=== PATIENT | male | born 1985 | race Caucasian/White ===

== ENCOUNTER 2018-02-23 13:15 | Emergency (ER) | payer OTHER ==
[~2018-02-23] VITALS: Ht 185.4 cm; Wt 97.5 kg
--- NOTE | 2018-02-23 13:51 | ED GI/GU/ABDOMINAL COMPLAINT ---
History of Present Illness General Chief Complaint: General Adult Stated Complaint: "I THINK MY SUGAR IS LOW" Source: patient, family Exam Limitations: no limitations Vital Signs & Intake/Output Vital Signs & Intake/Output Vital Signs Date Time Temp Pulse Resp B/P B/P Pulse O2 O2 Flow FiO2 Mean Ox Delivery Rate 02/23 1844 99.9 88 15 98 Room Air Room Air 02/23 1519 99.4 76 15 114/69 100 Room Air Room Air 02/23 1406 Room Air Room Air 02/23 1326 100.0 136 18 123/80 97 Room Air ED Intake and Output 02/24 0000 02/23 1200 Intake Total 2000 Output Total Balance 2000 Intake, IV 2000 Intake, Oral 0 Patient 97.522 kg Weight Weight Reported by Patient Measurement Method Allergies Coded Allergies: NO KNOWN ALLERGIES (02/23/18) Triage Note: 32 Y/O MALE C/O "FEELING SO SICK", SYMPTOMS ONSET THIS AM. STATES HX DIABETES (FINGERSTICK 281), WOKE TODAY NOT FEELING WELL; FIANCE RECENTLY WITH N/V/D SATURDAY. PT C/O DIFFUSE ABDOMINAL PAIN AND N/V/D. PT STATING "I FEEL LIKE IM GOING TO PASS OUT". TAKEN TO ROOM 1, EKG ORDERED Triage Nurses Notes Reviewed? yes HPI: 32M PMH Type 1 DM presents with 2 days of worsening nausea, intractable vomiting , profuse diarrhea 5+ episodes and watery but without blood, abdominal cramping, malaise, diaphoresis. His SO had diarrhea 2 days ago and works with small children, but she is better now. He is unable to toleate food or water and feels very ill. He is unsure of when he last took insulin, but it was not today. No recent travel. Past History Travel History Traveled to [place] past 21 day No Medical History Any Pertinent Medical History? see below for history Neurological: NONE EENT: NONE Cardiovascular: NONE Respiratory: NONE Gastrointestinal: NONE Hepatic: NONE Renal: NONE Musculoskeletal: NONE Psychiatric: NONE Endocrine: diabetes Blood Disorders: NONE Cancer(s): NONE MASON HELPER/Reproductive: NONE Surgical History Surgical History: non-contributory Psychosocial History What is your primary language [place]at[place] Tobacco Use: Current Daily Use Daily Tobacco Use Amount/Type: => 5 Cigarettes daily Family History Hx Contributory? No Review of Systems Review of Systems Constitutional: Reports: no symptoms. EENTM: Reports: no symptoms. Respiratory: Reports: no symptoms. Cardiovascular: Reports: no symptoms. GI: Reports: no symptoms. Genitourinary: Reports: no symptoms. Musculoskeletal: Reports: no symptoms. Skin: Reports: no symptoms. Neurological/Psychological: Reports: no symptoms. Hematologic/Endocrine: Reports: no symptoms. Immunologic/Allergic: Reports: no symptoms. All Other Systems: Reviewed and Negative Physical Exam Physical Exam General Appearance: well developed/nourished, mild distress, diaphoretic, appears ill Head: atraumatic, normal appearance Eyes: Bilateral: normal appearance, PERRL, EOMI. Ears, Nose, Throat, Mouth: hearing grossly normal, dry mm Neck: normal inspection, supple, full range of motion Respiratory: normal breath sounds, no respiratory distress Cardiovascular: regular rate/rhythm Gastrointestinal: soft, non-tender Back: normal inspection, normal range of motion Extremities: normal range of motion Neurologic/Psych: awake, alert, oriented x 3, normal mood/affect Skin: intact, normal color, warm/dry Core Measures ACS in differential dx? No Sepsis Present: No Sepsis Focused Exam Completed? No Progress Differential Diagnosis: AAA, AMI, appendicitis, biliary colic, bowel obstruction , colon cancer, cholecystitis, diverticulitis, epididymitis, esophageal varices, gastritis, hepatitis, hernia, hemorrhoids, ischemic bowel, inflamm bowel dis, Shaunna-Andrew tear, orchitis, pancreatitis, prostatitis, peptic ulcer, PUD/GERD, perforated viscous, pyelonephritis, SBO, STD, testicular torsion, ureterolithiasis, urinary retention, urethritis, UTI/pyelo Plan of Care: Orders Procedure Date/time Status Consistent Carbohydrate 2 02/24 B Active RAPID VIRAL INFLUENZA A 02/23 1558 Complete BLOOD CULTURE 02/23 1352 Active URINALYSIS 02/23 1350 Complete LIPASE 02/23 1350 Complete COMPREHENSIVE METABOLIC PANEL 02/23 1350 Complete CBC WITHOUT DIFFERENTIAL 02/23 1350 Complete EKG 02/23 1325 Active Laboratory Tests 02/23/18 1554: Urine Color YEL, Urine Clarity CLEAR, Urine pH 6.0, Ur Specific [place] 1.020, Urine Protein NEG, Urine Ketones 15 H, Urine Nitrite NEG, Urine Bilirubin NEG, Urine Urobilinogen 1.0, Ur Leukocyte Esterase NEG, Ur Microscopic EXAM NOT REQUIRED, Urine Hemoglobin NEG, Urine Glucose >=1000 H 02/23/18 1437: Anion Gap 13, Estimated GFR > 60, BUN/Creatinine Ratio 14.3, Glucose 327 H, Calcium 9.4, Total Bilirubin 0.9, AST 36, ALT 62, Alkaline Phosphatase 134 H, Total Protein 7.0, Albumin 4.5, Globulin 2.5, Albumin/Globulin Ratio 1.8, Lipase < 10 L, CBC w Diff NO MAN DIFF REQ, RBC 4.98, MCV 93.5, MCH 31.0, MCHC 33.2, RDW 13.2, MPV 10.3, Gran % 89.8 H, Lymphocytes % 5.1 L, Monocytes % 4.7, Eosinophils % 0.4, Basophils % 0, Absolute Granulocytes 11.0 H, Absolute Lymphocytes 0.6 L, Absolute Monocytes 0.6, Absolute Eosinophils 0, Absolute Basophils 0 Microbiology 02/24 1600 NASOPHARYN: Influenza Virus A & B Rapid Smear - COMP 02/23 1437 BLOOD: Blood Culture - RES 02/23 1437 BLOOD: Blood Culture - CAN Cancelled: Quantity not sufficient for both blood culture bottles. Patient improved dramatically after IV hydration, food, anti-nausea meds, and insulin. His workup is normal. He can be discharged home with outpatient follow up. Fingerstick on discharge is 371, however patient feels much better and says he will manage his own levels at home, and is confident he can handle it. We will discharge per patient wishes. Diagnostic Imaging: Viewed by Me: CT Scan. Discussed w/RAD: CT Scan. Radiology Impression: PATIENT: GAL ALEJANDRO PRESENT AGE: 32 PATIENT ACCOUNT NO: [id number] : 86 LOCATION: [facility] ([place]) ORDERING PHYSICIAN: Felix Mayen MD SERVICE DATE: 02/23/18 EXAM TYPE : CAT - CT ABD & PELVIS W IV CONTRAST EXAMINATION: CT ABDOMEN AND PELVIS WITH CONTRAST CLINICAL INFORMATION: Right lower quadrant pain with fever. Assess for appendicitis or pyelonephritis. COMPARISON: CT scan 05/02/2008. TECHNIQUE: Multidetector volumetric imaging was performed of the abdomen and pelvis following IV administration of 95 mL of Optiray 320 intravenous contrast. Sagittal and coronal reformatted images were obtained on the technologist's workstation. DLP: 526 mGy-cm FINDINGS: LUNG BASES: The visualized lung bases are unremarkable. LIVER, GALLBLADDER, AND BILIARY TREE: The liver is normal in size, shape, and attenuation. No focal hepatic lesion or biliary ductal dilatation is present. The gallbladder is unremarkable with no evidence of radiopaque gallstones, gallbladder wall thickening, or obvious pericholecystic inflammatory changes. PANCREAS: Unremarkable. SPLEEN: Mild splenomegaly. ADRENAL GLANDS: Unremarkable. KIDNEYS AND URETERS: The kidneys are normal in size, shape, and attenuation. No hydronephrosis, hydroureter, or calculi seen. No perinephric stranding. BLADDER: Unremarkable. GASTROINTESTINAL TRACT: Bowel gas pattern is nonobstructive. No evidence of acute bowel pathology. The appendix is normal. ABDOMINAL WALL: No significant hernia is appreciated. LYMPH NODES: No adenopathy. VASCULAR: Unremarkable. PELVIC VISCERA: No free pelvic fluid. Prostate gland and seminal vesicles are unremarkable. OSSEOUS STRUCTURES: No acute osseous abnormalities. IMPRESSION: No acute intra-abdominal or intrapelvic pathology to explain the patient's right lower quadrant pain with fever. Normal appendix. No abnormal radiodensity of the kidneys, hydronephrosis, or genitourinary calculus. DICTATED BY: Suresh Alegre MD DATE/TIME DICTATED:1637 SOFTWARE SALES EXECUTIVE:OLIVER DATE/TIME TRANSCRIBED:02/23/181637 CONFIDENTIAL, DO NOT COPY WITHOUT APPROPRIATE AUTHORIZATION. <Electronically signed in Other Vendor System> SIGNED BY: Suresh Alegre MD 02/23/18 0706 Initial ED EKG: normal sinus rhythm, no ST T wave changes Departure Departure Disposition: HOME OR SELF CARE Condition: Stable Clinical Impression Primary Impression: Acute gastroenteritis Secondary Impressions: Dehydration, Type 1 diabetes mellitus with hyperglycemia Referrals: Alexandro Kaplan MD (PCP/Family) Additional Instructions: Follow up with your PCP. Keep checking your glucose levels. Stay well hydated. Return to ER if any new or worsening symptoms. Departure Forms: Customer Survey General Discharge Information
[2018-02-23 14:56] LABS: ABSOLUTE BASOPHIL COUNT 0 /CUMM (0.0-0.2); ABSOLUTE EOSINOPHIL COUNT 0 /CUMM (0.0-0.7); ABSOLUTE LYMPH COUNT 0.6 /CUMM (1.2-3.4); ABSOLUTE MONOCYTE COUNT 0.6 /CUMM (0.10-0.60); BASOPHIL % 0 % (0.0-2.0); EOSINOPHIL % 0.4 % (0-5); HEMATOCRIT 46.5 % (42-52); MEAN CORPUSCULAR HGB CONC 33.2 G/DL (33.0-37.0); MEAN CORPUSCULAR VOLUME 93.5 FL (80.0-94.0); MEAN PLATELET VOLUME 10.3 FL (7.4-10.4); PLATELET COUNT 288 /CUMM (130-400); RBC DISTRIBUTION WIDTH 13.2 % (11.5-14.5); RED BLOOD CELL CT 4.98 /CUMM (4.70-6.10); WHITE BLOOD CELL COUNT 12.3 /CUMM (4.8-10.8)
[2018-02-23 15:07] LABS: GRANULOCYTE % 89.8 % (42.2-75.2)
[2018-02-23 15:19] VITALS: BP 114/69
--- NOTE | 2018-02-23 17:15 | CT SCAN REPORT ---
EXAMINATION: CT ABDOMEN AND PELVIS WITH CONTRAST CLINICAL INFORMATION: Right lower quadrant pain with fever. Assess for appendicitis or pyelonephritis. COMPARISON: CT scan 05/02/2008. TECHNIQUE: Multidetector volumetric imaging was performed of the abdomen and pelvis following IV administration of 95 mL of Optiray 320 intravenous contrast. Sagittal and coronal reformatted images were obtained on the technologist's workstation. DLP: 526 mGy-cm FINDINGS: LUNG BASES: The visualized lung bases are unremarkable. LIVER, GALLBLADDER, AND BILIARY TREE: The liver is normal in size, shape, and attenuation. No focal hepatic lesion or biliary ductal dilatation is present. The gallbladder is unremarkable with no evidence of radiopaque gallstones, gallbladder wall thickening, or obvious pericholecystic inflammatory changes. PANCREAS: Unremarkable. SPLEEN: Mild splenomegaly. ADRENAL GLANDS: Unremarkable. KIDNEYS AND URETERS: The kidneys are normal in size, shape, and attenuation. No hydronephrosis, hydroureter, or calculi seen. No perinephric stranding. BLADDER: Unremarkable. GASTROINTESTINAL TRACT: Bowel gas pattern is nonobstructive. No evidence of acute bowel pathology. The appendix is normal. ABDOMINAL WALL: No significant hernia is appreciated. LYMPH NODES: No adenopathy. VASCULAR: Unremarkable. PELVIC VISCERA: No free pelvic fluid. Prostate gland and seminal vesicles are unremarkable. OSSEOUS STRUCTURES: No acute osseous abnormalities. IMPRESSION: No acute intra-abdominal or intrapelvic pathology to explain the patient's right lower quadrant pain with fever. Normal appendix. No abnormal radiodensity of the kidneys, hydronephrosis, or genitourinary calculus.
== END 2018-02-23 18:58 ==
LOC: ERH 13:15
PROVIDERS: Internal Medicine
DX: K52.9 Noninfective gastroenteritis and colitis, unspecified (principal); E86.0 Dehydration; E10.65 Type 1 diabetes mellitus with hyperglycemia; R11.2 Nausea with vomiting, unspecified; R19.7 Diarrhea, unspecified
CPT/HCPCS: 74177; 81003; 87040; 87804; 87804-59; 93005; 93010; 96361; 96372; 96374; 96375; 96376; 99291; J2405; J2550